=== PATIENT | female | born 2000 | race Caucasian/White ===

== ENCOUNTER 2023-12-07 22:00 | Emergency (ER) | payer OTHER ==
[~2023-12-07] VITALS: Ht 170.1 cm; Wt 158.8 kg
[~2023-12-07 22:00] MED LIST: KENALOG 0.025%15 GM PO; ROXICET ORAL SOL5 ML PO
== END 2023-12-07 23:40 | disposition home or self-care (01) ==
LOC: ED 22:00
DX: J11.1 Influenza due to unidentified influenza virus with other respiratory manifestations (principal); R03.0 Elevated blood-pressure reading, without diagnosis of hypertension